=== PATIENT | male | born 1965 | race Caucasian/White ===

== ENCOUNTER → 2022-04-02 11:08 | Outpatient (CLI) | payer BC, SELFPAY ==
--- NOTE | 2022-04-02 11:10 | DI.US.S_ITS ---
PROCEDURE: US SCROTUM INDICATIONS: Scrotal mass TECHNIQUE: Real-time scanning was performed of the scrotum and testicles, with image documentation. Color and pulse Doppler interrogation was performed of both testicles. COMPARISON: None. FINDINGS: Right: Testicle is normal in size at 4.6 x 2.2 x 2.9 cm, and homogenous in echotexture. Epididymis is normal in overall size and morphology. Small hydrocele. No varicoceles. Overlying scrotal skin is normal in thickness. Left: Testicle is normal in size at 3.8 x 1.9 x 2.7 cm, and homogeneous in echotexture. Epididymis is normal in overall size and morphology. Small hydrocele. No varicoceles. Overlying scrotal skin is normal in thickness. 3 mm left scrotal pleural. Doppler: Color and pulse Doppler demonstrate normal and symmetric arterial flow in both testicles. IMPRESSION: 1. Normal appearance of the testicles bilaterally. 2. Small bilateral hydroceles. 3. 3 mm left scrotal dariel. Dictated by: Yobany GREGORIO Interpreted: Melissa Chandler MD on 04/02/2022 at 12:05 Approved by: Melissa Chandler M.D. on 04/02/2022 at 13:03
== END ==
PROVIDERS: PCP Internal Medicine; Referring Provider Specialist; Visit Provider Specialist
DX: N43.40 Spermatocele of epididymis, unspecified (principal); N43.3 Hydrocele, unspecified
CPT/HCPCS: 76870

== ENCOUNTER → 2022-04-08 08:26 | Outpatient (CLI) | payer BC, SELFPAY ==
[2022-04-08 10:03] LABS: Prostate Specific Antigen 2.44 ng/mL (0.10-4.00)
== END ==
PROVIDERS: PCP Internal Medicine; Referring Provider Specialist; Visit Provider Specialist
DX: R97.20 Elevated prostate specific antigen [PSA] (principal)
CPT/HCPCS: 36415; 84153

== ENCOUNTER → 2022-07-17 09:18 | Outpatient (CLI) | payer BC, SELFPAY ==
[2022-07-17 10:27] LABS: COVID19 -Nasal RAPID Negative (Negative)
== END ==
PROVIDERS: PCP Internal Medicine; Visit Provider Surgery
DX: Z20.822 Contact with and (suspected) exposure to COVID-19 (principal); Z01.812 Encounter for preprocedural laboratory examination
CPT/HCPCS: 87635; C9803

== ENCOUNTER 2022-07-20 07:31 | Day surgery (SDC) | payer BC, SELFPAY ==
--- NOTE | 2022-07-20 | PATH_ITS ---
[facility] Accession Number: [id number] . 01 Material submitted: . PART A: gastrointestinal site - ANTRUM BIOPSY PART B: gastrointestinal site - GASTRIC POLYP PART C: gastrointestinal site - CARDIA BIOPSY PART D: colon - ASCENDING COLON POLYP . 01 Clinical history: . DX COLONOSCOPY/EGD W/POSS BX . 01 Diagnosis: A. Antrum, Biopsy: Gastric antral and body mucosa with minimal chronic inflammation. Negative for Helicobacter organisms by immunohistochemistry. Negative for intestinal metaplasia. Negative for dysplasia or malignancy. . B. Gastric Polyp, Biopsy: Fundic gland polyp. No evidence of Helicobacter organisms on H/E stain. Negative for intestinal metaplasia. Negative for dysplasia and malignancy. . C. Cardia, Biopsy: Proximal gastric-type mucosa with moderate chronic inflammation. Negative for Helicobacter organisms by immunohistochemistry. Negative for intestinal metaplasia on alcian blue stain. Negative for dysplasia or malignancy. . D. Ascending Colon Polyp, Biopsy: Tubular adenoma. [facility] 07/22/2022 1347 Local . 01 Electronically signed: . Kwesi House MD, PhD, Pathologist NPI- [id number] . 01 Gross description: . Part A: ANTRUM BIOPSY: Received in formalin are 2 fragment(s) of montgomery, soft tissue measuring 0.1 x 0.1 x 0.1 cm to 0.2 x 0.2 x 0.2 cm submitted entirely in 1 cassette(s) Part B: GASTRIC POLYP: Received in formalin is 1 fragment(s) of montgomery, soft tissue measuring 0.3 x 0.3 x 0.3 cm submitted entirely in 1 cassette(s) Part C: CARDIA BIOPSY: Received in formalin are 2 fragment(s) of montgomery, soft tissue measuring 0.1 x 0.1 x 0.1 cm to 0.3 x 0.3 x 0.2 cm submitted entirely in 1 cassette(s) Part D: ASCENDING COLON POLYP: Received in formalin is 1 fragment(s) of montgomery, soft tissue measuring 0.6 x 0.6 x 0.6 cm submitted entirely in 1 cassette(s) /[facility] 07/20/2022 2310 Local . 01 Microscopic: . A. An immunohistochemical stain was performed to evaluate for Helicobacter organisms and is negative. The control stain showed appropriate reactivity. . C. An alcian blue stain is negative for goblet cells. An immunohistochemical stain is negative for Helicobacter organisms. Control stains show appropriate reactivity. . * This test was developed and its performance characteristics determined by [facility]. It has not been cleared or approved by the U.S. Food and Drug Administration. The FDA has determined that such clearance or approval is not necessary. This test is used for clinical purposes. It should not be regarded as investigational or for research. . 01 Pathologist provided ICD-10: K29.70, K31.7, D12.2 . 01 CPT . 919157, 616310, 708133, 901581, K57692, 291934 Specimen Comment: A courtesy copy of this report has been sent to [phone] Performed at: [facility] [address] [place] [address] [address] [facility], [place], [place] [id number] MD Estuardo Monzon MD Phone: [phone]
[2022-07-20 07:48] VITALS: BP 159/98; PULSE 62; RESP 16; TEMP 36.4; O2SAT 100; BMI 22.4
--- NOTE | 2022-07-20 08:04 | PM.HP.1 ---
History of Present Illness History of Present Illness Date Patient Seen: 07/20/22 Time Patient Seen: 08:05 Chief complaint: DX COLONOSCOPY/EGD W/POSS BX Narrative: Chronic GERD. Personal history of adenomatous colon polyps. Patient History Medical History BPH (benign prostatic hyperplasia) BPH w/o urinary obs/LUTS Family history of prostate cancer in father Nocturia Surgical History History of circumcision History of prostate biopsy Family & Social History Family History Father Melanoma Prostate cancer Stroke Daughter Diabetes mellitus Tobacco & Substance use: Smoking Status Never smoker alcohol intake current Meds Home Medications and Allergies Home Medications Medication Instructions Recorded Confirmed Type ascorbic acid (vitamin C) 1,000 mg 1 g PO Q6H 02/25/21 07/20/22 History tablet multivitamin (Daily Multi-Vitamin 1 tab PO DAILY 02/25/21 07/20/22 History tablet) zolpidem 10 mg tablet 10 mg PO BEDTIME PRN sleep 02/25/21 07/20/22 History omeprazole 20 mg capsule,delayed 10 mg PO DAILY 07/20/22 07/20/22 History release Allergies Allergy/AdvReac Type Severity Reaction Status Date / Time No Known Drug Allergies Allergy Verified 07/20/22 07:33 Review of Systems Review of Systems ROS: Yes All systems reviewed with the patient and are negative except as otherwise documented Exam Const General: cooperative HENMT Head: normal to inspection Eyes General: appearance normal, both eyes and all related structures Neck Neck: normal visual inspection Chest Chest: normal inspection of the chest Resp Effort & Inspection: normal respiratory effort Cardio Rate: regular rate GI Inspection: normal to inspection Skin General: no rashes or lesions noted Neuro General: patient alert and patient awake Extrem General: normal to inspection and no pedal edema Psych Appearance: grossly normal Assessment & Plan Assessment & Plan narrative: 56-year-old male longstanding reflux. Barretts screening is pursued today. He also has a personal history of colon polyps. Colonoscopy is also pursued today. Time Spent With Patient Critical Care time: I spent a total of [] minutes of critical care time on this patient's care today; this time is exclusive of procedural time.
--- NOTE | 2022-07-20 08:06 | PM.PREOP ---
Pre-operative Note COVID-19 COVID-19 status: Negative Result date/Date tested (Pos, Neg/Pending): 07/17/22 Criteria for continued procedure: Possibility delay results in more complex future surgery or treatment Interval Note History & Physical reviewed/Exam performed by Physician: Yes Changes to H&P: No ASA Class (for procedural sedation): II
[2022-07-20] MEDS: SODIUM CHLORIDE 0.9% 1,000 ML 84 ML IV (08:11)
--- NOTE | 2022-07-20 09:12 | PM.OP.EC ---
Operative Date/Time/Diagnoses Date of procedure: 07/20/22 Time of procedure: 09:13 Pre-op diagnosis: Chronic GERD, personal history of colon polyps Post-op diagnosis: same Procedure & Clinicians Study performed: EGD with biopsies and colonoscopy with hot snare polypectomy Same procedure as scheduled: Yes Indications: Chronic GERD and personal history of colon polyps Surgeon: Edison Powell Procedure Notes SCOAP/Timeout: Done Procedure in detail: After the risks and benefits were explained, written and verbal informed consent was obtained. The patient was brought into the procedure room and placed into the left lateral decubitus position. Please see nurse rehabilitation specialist notes for sedation details. The scope was introduced into the mouth through the bite block and advanced under direct visualization to the 2nd portion of the duodenum. The scope was slowly withdrawn carefully examining the mucosa for any defects or lesions. Retroflexed views were accomplished in the stomach. The stomach was decompressed, the scope was then removed from the patient who tolerated the procedure well. Scope withdrawal time: 6 minutes Sedation minutes: 24 Complications: none Impression: 1. Duodenum: No significant pathology was appreciated from the bulb through the 2nd portion. 2. Stomach: Mild gastropathy was appreciated throughout and biopsies were therefore taken from the antrum for exclusion of H pylori. There was a diminutive gastric polyp from the body removed with cold forceps. Retroflexed views of the LES disclosed sliding hiatal hernia. The gastric cardia appeared slightly irregular and therefore targeted biopsies were acquired. 3. Esophagus: The squamocolumnar junction correlated with the top of the gastric folds. GEJ was at roughly 39-40 cm. The diaphragmatic pinchcock was at about 42 cm. (2-3 cm sliding hiatal hernia). I did not appreciate any evidence of active esophagitis nor any endoscopic suggestion of Barretts. 4. Colon: In the ascending colon there was an approximately 6-7 mm sessile polyp removed with hot snare. The patient had grade 1 internal hemorrhoids. Otherwise no additional pathology was appreciated throughout. Endoscopic diagnosis 1. Gastropathy 2. Gastric polyp 3. Sliding hiatal hernia 4. Colon polyp Post-procedure Plan for aftercare: 1. Await histopathology 2. Repeat colonoscopy will likely be suggested for 5 years' time. (the last procedure demonstrated a 1 cm adenomatous polyp) Disposition: PACU
[2022-07-20 09:15] VITALS: BP 140/90; PULSE 55; RESP 13; TEMP 36; O2SAT 100
[2022-07-20 09:20] VITALS: BP 153/102; PULSE 57; RESP 16; O2SAT 100
[2022-07-20 09:25] VITALS: BP 148/103; PULSE 56; RESP 20; O2SAT 100
[2022-07-20 09:30] VITALS: BP 161/103; PULSE 60; RESP 16; O2SAT 100
[2022-07-20 09:45] VITALS: BP 170/88; PULSE 56; RESP 16; TEMP 36.1; O2SAT 100
== END 2022-07-20 09:48 | disposition home or self-care (01) ==
PROVIDERS: PCP Internal Medicine; Referring Provider Internal Medicine Gastroenterology; Visit Provider Internal Medicine Gastroenterology
PROC: 0DJ08ZZ Inspection of Upper Intestinal Tract, Via Natural or Artificial Opening Endoscopic (ICD-10-PCS; CPT 43235; principal; 2022-07-20 08:30)
PROC: 0DJD8ZZ Inspection of Lower Intestinal Tract, Via Natural or Artificial Opening Endoscopic (ICD-10-PCS; CPT 45378; 2022-07-20 08:30)
DX: D12.2 Benign neoplasm of ascending colon (principal); K64.0 First degree hemorrhoids; K31.7 Polyp of stomach and duodenum; K29.50 Unspecified chronic gastritis without bleeding; K44.9 Diaphragmatic hernia without obstruction or gangrene; K21.9 Gastro-esophageal reflux disease without esophagitis; Z86.010 Personal history of colon polyps
CPT/HCPCS: 45385; 43239; J2704; J3010

== ENCOUNTER → 2023-02-12 09:54 | Outpatient (CLI) | payer OTHER, SELFPAY ==
[2023-02-12 12:27] LABS: Prostate Specific Antigen 2.38 ng/mL (0.10-4.00)
== END ==
PROVIDERS: PCP Internal Medicine; Referring Provider Specialist; Visit Provider Specialist
DX: N40.0 Benign prostatic hyperplasia without lower urinary tract symptoms (principal)
CPT/HCPCS: 36415; 84153

== ENCOUNTER → 2023-03-12 13:46 | Outpatient (CLI) | payer OTHER, SELFPAY ==
--- NOTE | 2023-03-12 13:47 | DI.CT.S_ITS ---
PROCEDURE: CT IVP A/P W/WO INDICATIONS: hematuria TECHNIQUE: Optional 5 mm thick noncontrast images acquired from the diaphragm to the symphysis pubis. After the administration of intravenous contrast, 5 mm thick images acquired from the diaphragm to the symphysis pubis after a 10-minute delay. 2 mm thick coronal and sagittal reformats were then performed of the kidneys and ureters. For radiation dose reduction, the following was used: automated exposure control, adjustment of mA and/or kV according to patient size. COMPARISON: US, US SCROTUM, 04/02/2022, 11:29. FINDINGS: Image quality: Excellent. Lung bases: Lung bases are clear. Heart size is normal. Moderate hiatal hernia. Urinary system: Both kidneys are normal in size, without hydronephrosis or nephrolithiasis on pre-contrast images. No perinephric fat stranding. Benign right renal cyst measuring 3.2 cm. A few additional small cysts. There is normal bilateral renal enhancement. Renal calyces appear normal in morphology when filled with contrast. Opacified portions of both ureters demonstrate normal caliber. No filling defect within the opacified portions of the ureters. Bladder wall thickness is normal. No calcified bladder stones. Other solid organs: Liver is normal in size and enhancement. Large benign cyst in the liver measuring 8.2 cm. Gallbladder is unremarkable. Biliary system is non dilated. Pancreas enhances normally. Spleen is normal in size and enhancement. No adrenal nodules. Peritoneum and bowel: Bowel loops demonstrate normal wall thickness and caliber. Normal appendix. No free fluid or air. Nodes and vessels: No retroperitoneal or mesenteric adenopathy by size criteria. Aorta and inferior vena cava are normal in size. Abdominal wall: No ventral hernias. Pelvis: Prostatomegaly. No pathologic free pelvic fluid. Probable fat containing inguinal hernias. No adenopathy. Bones: No suspicious bony lesions. No vertebral body compression fractures. IMPRESSION: 1. No kidney stones. No hydronephrosis. 2. No solid renal mass. 3. No upper urinary tract filling defect. 4. Moderate-sized hiatal hernia. 5. Prostatomegaly. Dictated by: Raji Virk M.D. on 03/12/2023 at 15:57 Approved by: Raji Virk M.D. on 03/12/2023 at 16:09
== END ==
PROVIDERS: PCP Internal Medicine; Referring Provider Specialist; Visit Provider Specialist
DX: R31.9 Hematuria, unspecified (principal); K44.9 Diaphragmatic hernia without obstruction or gangrene; N40.0 Benign prostatic hyperplasia without lower urinary tract symptoms; K76.89 Other specified diseases of liver
CPT/HCPCS: 74178; Q9967

== ENCOUNTER 2023-07-15 20:26 | Emergency (ER) | payer OTHER, SELFPAY ==
[2023-07-15 20:30] VITALS: BP 91/60; PULSE 68; RESP 18; TEMP 36.6; O2SAT 100; BMI 22.4
--- NOTE | 2023-07-15 20:36 | DI.RAD.S_ITS ---
PROCEDURE: XR ANKLE RT MIN 3V INDICATIONS: fall/pain/can't walk TECHNIQUE: 3 views of the ankle were acquired. COMPARISON: None. FINDINGS: Bones: There is a comminuted, displaced distal right fibular metadiaphyseal fracture. No other fracture or dislocation. No fibulotalar widening. Soft tissues: No tibiotalar joint effusion. Achilles tendon appears normal. IMPRESSION: Displaced, comminuted distal right fibular fracture. Dictated by: Sara Scott M.D. on 07/15/2023 at 21:28 Approved by: Sara Scott M.D. on 07/15/2023 at 21:29
--- NOTE | 2023-07-15 20:36 | DI.RAD.S_ITS ---
PROCEDURE: XR CHEST 1V INDICATIONS: chest pain TECHNIQUE: One view of the chest was acquired. COMPARISON: None. FINDINGS: Surgical changes and devices: None. Lungs and pleura: Patchy airspace opacities are present within the left mid lung. No pleural effusion or pneumothorax. Mediastinum: Mediastinal contours appear normal. Heart size is normal. Bones and chest wall: No suspicious bony lesions. Overlying soft tissues appear unremarkable. IMPRESSION: Patchy left mid lung airspace opacities suspicious for aspiration/infection. Short interval follow-up recommended to exclude underlying neoplasm. Dictated by: Sara Scott M.D. on 07/15/2023 at 21:27 Approved by: Sara Scott M.D. on 07/15/2023 at 21:28
[2023-07-15 20:43] VITALS: PULSE 71; RESP 22
[2023-07-15 21:00] VITALS: BP 93/62; PULSE 75; RESP 22
--- NOTE | 2023-07-15 21:01 | ED.GENADULT ---
HPI - General Adult General Chief complaint: Syncope Stated complaint: Injured Right ankle in fall Time Seen by Provider: 07/15/23 20:43 Source: patient Mode of arrival: Wheelchair Limitations: no limitations History of Present Illness HPI narrative: Patient is a 57-year-old male who is here for evaluation of a syncopal episode resulting in a right ankle injury. He states he was at home. It is normal state of health. [place] somewhat lightheaded. Had no chest pain, palpitations, shortness of breath, headache or nausea or vomiting. He states he stood up to go outside. As he was standing outside he had a syncopal episode. He is unsure exactly how he fell but during the fall he did injure his right ankle and has been unable to walk on his right ankle since that time. No history of seizures. This did not appear to be a seizure. He did start a new blood pressure medicines about 3 weeks ago that he takes 1 time a day. The time of my evaluation other than his right ankle pain has no other associated symptoms. Related Data Home Medications Medication Instructions Recorded Confirmed ascorbic acid (vitamin C) 1,000 mg 1 g PO Q6H 02/25/21 03/16/23 tablet multivitamin (Daily Multi-Vitamin 1 tab PO DAILY 02/25/21 03/16/23 tablet) omeprazole 20 mg capsule,delayed 10 mg PO DAILY 07/20/22 03/16/23 release zolpidem 10 mg tablet 5 mg PO BEDTIME PRN sleep 09/03/22 03/16/23 Previous Rx's Medication Instructions Recorded hydrocodone 5 mg-acetaminophen 325 1 tab PO Q4-6H PRN pain #20 tabs 07/15/23 mg tablet Allergies Allergy/AdvReac Type Severity Reaction Status Date / Time No Known Drug Allergies Allergy Verified 03/16/23 09:02 Review of Systems Constitutional Constitutional: Reports system reviewed and no additional complaints, except as documented Cardiovascular Cardiovascular: Reports system reviewed and no additional complaints, except as documented Respiratory Respiratory: Reports system reviewed and no additional complaints, except as documented Gastrointestinal Gastrointestinal: Reports system reviewed and no additional complaints, except as documented Musculoskeletal Musculoskeletal: Reports system reviewed and no additional complaints, except as documented Integumentary/Breasts Skin/Breast: Reports system reviewed and no additional complaints, except as documented Neurologic Neurologic: Reports system reviewed and no additional complaints, except as documented Hematologic/Lymphatic On Anticoagulants: No Patient History Medical History BPH (benign prostatic hyperplasia) BPH w/o urinary obs/LUTS Family history of prostate cancer in father Hematuria History of elevated PSA Nocturia Surgical History History of circumcision History of prostate biopsy Family History Father Melanoma Prostate cancer Stroke Daughter Diabetes mellitus Social History marital status: number of children: 2 household members: spouse occupational status: employed Smoking Status: Never smoker alcohol intake: current caffeine: Yes Smoking Status: Never smoker alcohol intake frequency: 0-2 drinks per day Substance Use Type: marijuana Exam Initial Vital Signs Initial Vital Signs: Vital Signs Temperature 97.8 F 07/15/23 20:30 Pulse Rate 68 07/15/23 20:30 Respiratory Rate 18 07/15/23 20:30 Blood Pressure 91/60 07/15/23 20:30 Pulse Oximetry 100 07/15/23 20:30 Oxygen Delivery Method Room Air 07/15/23 20:30 Const General: cooperative and comfortable HENMT Head: normal to inspection and normocephalic Resp Effort & Inspection: normal respiratory effort Auscultation: clear to auscultation bilaterally Cardio Rate: regular rate Rhythm: regular rhythm Pulses: dorsalis pedis present on the right Skin General: no rashes or lesions noted Neuro Sensory Exam: no sensory deficits noted Extrem Other: Deformity to right ankle Procedures Orthopedic Splinting/Casting Injury #1: Side: right Lower Extremity Injury Location: ankle Lower Extremity Immobilizer: posterior splint and stirrup splint Other Orthopedic Equipment: crutches Post splinting neuro exam: intact Post splinting vascular exam: intact Placed by: Provider Course Orders Ordered: ED Orders 07/15/23 20:36 XR ankle RT min 3V Stat XR chest 1V Stat EKG-12 Lead Stat 07/15/23 20:50 Complete Blood Count AUTO DIFF Stat Comprehensive Metabolic Panel Stat Lipase Stat Magnesium Stat PTT Partial Thromboplastin Kiko Stat Prothrombin Time INR Stat Troponin & CK Cardiac Panel Stat Discontinued Medications Hydrocodone Bitart/Acetaminophen (Hydrocodone/Acet 5/325 Tablet) 1 tab PO NOW ONE Stop: 07/15/23 21:54 Last Admin: 07/15/23 22:01 Dose: 1 tab Documented By: FERMIN Hydrocodone Bitart/Acetaminophen (Hydrocodone/Acet 5/325 Prepack) 1 bottle MISC SEEINSTR ONE Stop: 07/15/23 21:54 Last Admin: 07/15/23 22:01 Dose: 1 bottle Documented By: FERMIN Vital Signs Vital signs: Vital Signs - 8 hr 07/15/23 20:30 07/15/23 20:43 07/15/23 21:00 Temperature 97.8 F Pulse Rate 68 71 Respiratory Rate 18 22 Blood Pressure 91/60 93/62 Pulse Oximetry 100 Oxygen Delivery Method Room Air 07/15/23 21:00 07/15/23 21:30 07/15/23 21:30 Temperature Pulse Rate 75 83 Respiratory Rate 22 27 H Blood Pressure 100/65 Pulse Oximetry Oxygen Delivery Method 07/15/23 22:00 07/15/23 22:00 Temperature Pulse Rate 82 Respiratory Rate 18 Blood Pressure 104/63 Pulse Oximetry Oxygen Delivery Method Medical Decision Making Lab Data Lab results reviewed: Yes I reviewed the patient's lab results. 07/15/23 20:50 07/15/23 20:50 Labs: Lab Results 07/15/23 07/15/23 07/15/23 Range/Units 20:50 20:50 20:50 WBC 9.4 (4.5-11.0) X10^3/uL RBC 4.92 (4.5-5.9) X10^6/uL Hgb 15.4 (13.5-17.5) g/dL Hct 44.7 (41-53) % MCV 90.9 (80-100) fL MCH 31.3 (26-34) PG MCHC 34.4 (30-36) % RDW 13.0 (11.6-14.8) % Plt Count 237 (150-400) X10^3/uL Neut % (Auto) 63.5 (50-75) % Lymph % (Auto) 29.0 (25-40) % Moffat % (Auto) 6.5 (3-14) % Eos % (Auto) 0.7 L (2-4) % Baso % (Auto) 0.3 (0-2) % Neut # (Auto) 6000 (3450-0666) /uL Lymph # (Auto) 2700 (3419-0786) /uL Moffat # (Auto) 600 (0-900) /uL Eos # (Auto) 100 (0-450) /uL Baso # (Auto) 0 (0-100) /uL PT 13.1 H (10.1-12.7) SECONDS INR 1.1 (0.9-1.3) APTT 26 (26-36) SECONDS Sodium 140 (137-145) mmol/L Potassium 3.7 (3.4-5.1) mmol/L Chloride 103 (98-107) mmol/L Carbon Dioxide 21 L (22-32) mmol/L BUN 15 (9-20) mg/dL Creatinine 1.02 (0.66-1.25) mg/dL Estimated GFR > 60 (>60) mL/min BUN/Creatinine Ratio 14.7 (6-22) Glucose 100 (70-100) mg/dL Calcium 8.8 (8.4-10.2) mg/dL Magnesium 2.1 (1.6-2.3) mg/dL Total Bilirubin 0.5 (0.2-1.3) mg/dL AST 48 (17-59) IU/L ALT 28 (<50) IU/L Alkaline Phosphatase 50 (38-126) U/L Total Creatine Kinase 68 (55-170) U/L Troponin I < 0.012 (0.01-0.034) ng/mL Total Protein 7.4 (6.3-8.2) g/dL Albumin 4.4 (3.5-5.0) g/dL Globulin 3.0 (1.7-4.1) g/dL Albumin/Globulin Ratio 1.5 (1.0-2.8) Lipase 125 (23-300) U/L Imaging Data Extremity x-ray #1: Radiologist's Impression: PROCEDURE:? XR ANKLE RT MIN 3V ? INDICATIONS:? fall/pain/can't walk ? TECHNIQUE:? 3 views of the ankle were acquired.? ? COMPARISON:? None. ? FINDINGS:? ? Bones:? There is a comminuted, displaced distal right fibular metadiaphyseal fracture.? No other fracture or dislocation.? No fibulotalar widening. ? Soft tissues:? No tibiotalar joint effusion.? Achilles tendon appears normal.? ? ? IMPRESSION:? Displaced, comminuted distal right fibular fracture. Chest x-ray: Radiologist's Impression: PROCEDURE:? XR CHEST 1V ? INDICATIONS:? chest pain ? TECHNIQUE:? One view of the chest was acquired.? ? COMPARISON:? None. ? FINDINGS:? ? Surgical changes and devices:? None.? ? Lungs and pleura:? Patchy airspace opacities are present within the left mid lung.? No pleural effusion or pneumothorax. ? Mediastinum:? Mediastinal contours appear normal.? Heart size is normal.? ? Bones and chest wall:? No suspicious bony lesions.? Overlying soft tissues appear unremarkable.? ? IMPRESSION:? Patchy left mid lung airspace opacities suspicious for aspiration/infection. ?Short interval follow-up recommended to exclude underlying neoplasm. ECG Data Attestation: I personally reviewed and interpreted this ECG as follows: Interpretation: Sinus rhythm Ventricular rate is 71 Normal axis Normal QRS Normal QTC No ST T wave changes MDM Narrative Medical decision making narrative: He does have a fibula fracture his right ankle with slight mild displacement of the tibiotalar joint which is suspicious for a syndesmotic injury. Does not appear to be any tibia fracture. Because of the possible syndesmotic injury will place the patient in an ankle splint and make him nonweightbearing. He was advised that he does need to follow-up orthopedic surgery. No other injuries with the event. Unsure the exact cause of his syncopal episode. The rest of his workup here in the emergency department is unremarkable. I did discuss the possibility of a transient arrhythmia. Will discharge patient home with instructions to contact his primary doctor for follow-up. He expressed understanding and agreement. Discharge Plan Departure Patient Disposition: Home Clinical Impression: Syncope, Fibula fracture Instructions: How to Use Crutches, DI for Syncope in Adults (Fainting), How to Take Care of Your Splint, Fibula Shaft Fracture Activity Restrictions/Additional Instructions: The splint that was placed today does need to stay on and stay clean and stay dry. Please use the crutches. Use the pain medication as needed. Contact the orthopedic group at the number provided below for follow-up. Return to the emergency department for new symptoms. Prescriptions: New hydrocodone-acetaminophen 5-325 mg tablet 1 tab PO Q4-6H PRN (Reason: pain) Qty: 20 0RF No Action omeprazole 20 mg Capsule,Delayed Release(Dr/Ec) 10 mg PO DAILY ascorbic acid (vitamin C) 1,000 mg tablet 1 g PO Q6H multivitamin [Daily Multi-Vitamin] Tablet 1 tab PO DAILY zolpidem 10 mg tablet 5 mg PO BEDTIME PRN (Reason: sleep) Referrals: Kelly Zuniga MD [Physician] - Rosalie Wilson MD [Primary Care Provider] - Stand Alone Forms: Patient Portal/API
[2023-07-15 21:03] LABS: Add Manual Diff / Slide Review NO; Basophils Absolute Auto 0 /uL (0-100); Basophils Percent Auto 0.3 % (0-2); Eosinophils Absolute Auto 100 /uL (0-450); Eosinophils Percent Auto 0.7 % (2-4); Hematocrit 44.7 % (41-53); Hemoglobin 15.4 g/dL (13.5-17.5); Lymphocytes Absolute Auto 2700 /uL (1100-4500); Mean Corpuscular HGB Conc 34.4 % (30-36); Mean Corpuscular Hemoglobin 31.3 PG (26-34); Mean Corpuscular Volume 90.9 fL (80-100); Monocytes Absolute Auto 600 /uL (0-900); Monocytes Percent Auto 6.5 % (3-14); Neutrophils Absolute Auto 6000 /uL (1500-7000); Neutrophils Percent Auto 63.5 % (50-75); Platelet Count 237 X10^3/uL (150-400); Red Blood Cell Count 4.92 X10^6/uL (4.5-5.9); White Blood Cell Count 9.4 X10^3/uL (4.5-11.0)
[2023-07-15 21:12] LABS: INR 1.1 (0.9-1.3); Prothrombin Time 13.1 SECONDS (10.1-12.7)
[2023-07-15 21:14] LABS: Alanine Aminotransferase 28 IU/L (<50); Albumin 4.4 g/dL (3.5-5.0); Albumin Globulin Ratio 1.5 (1.0-2.8); Alkaline Phosphatase 50 U/L (38-126); Aspartate Aminotransferase 48 IU/L (17-59); BUN Creatinine Ratio 14.7 (6-22); Bilirubin Total 0.5 mg/dL (0.2-1.3); Blood Urea Nitrogen 15 mg/dL (9-20); Calcium 8.8 mg/dL (8.4-10.2); Carbon Dioxide 21 mmol/L (22-32); Chloride 103 mmol/L (98-107); Creatine Kinase 68 U/L (55-170); Estimated Glomerular Filt Rate > 60 mL/min (>60); Glucose 100 mg/dL (70-100); HEMOLYSIS 40 (0-50); Lipase 125 U/L (23-300); Magnesium 2.1 mg/dL (1.6-2.3); PTT Partial Thromboplastin Tim 26 SECONDS (26-36); Potassium 3.7 mmol/L (3.4-5.1); Sodium 140 mmol/L (137-145); Total Protein 7.4 g/dL (6.3-8.2)
[2023-07-15 21:26] LABS: Troponin I < 0.012 ng/mL (0.01-0.034)
[2023-07-15 21:30] VITALS: BP 100/65; PULSE 83; RESP 27
[2023-07-15 22:00] VITALS: BP 104/63; PULSE 82; RESP 18
[2023-07-15] MEDS: HYDROCODONE/ACET 5/325 PREPACK 1 BOTTLE MISC (22:01)
[2023-07-15] MEDS: HYDROCODONE/ACET 5/325 TABLET 1 TAB PO (22:01)
== END 2023-07-15 22:37 | disposition home or self-care (01) ==
PROVIDERS: Emergency Provider Emergency Medicine; PCP Internal Medicine
DX: R55 Syncope and collapse (principal); S82.401A Unspecified fracture of shaft of right fibula, initial encounter for closed fracture; R07.9 Chest pain, unspecified
CPT/HCPCS: 36415; 71045; 73610; 80053; 82550; 83690; 83735; 84484; 85025; 85610; 85730; 93005; 99284

== ENCOUNTER → 2023-07-19 10:47 | Outpatient (CLI) | payer OTHER, SELFPAY ==
[2023-07-19 12:28] LABS: Hemoglobin A1C% w Est Avg Glu 4.8 % (4.0-6.0)
[2023-07-19 12:45] LABS: BUN Creatinine Ratio 17.1 (6-22); Blood Urea Nitrogen 13 mg/dL (9-20); Calcium 8.9 mg/dL (8.4-10.2); Carbon Dioxide 26 mmol/L (22-32); Chloride 103 mmol/L (98-107); Estimated Glomerular Filt Rate > 60 mL/min (>60); Glucose 80 mg/dL (70-100); HEMOLYSIS < 15 (0-50); Potassium 4.3 mmol/L (3.4-5.1); Sodium 137 mmol/L (137-145)
== END ==
PROVIDERS: PCP Internal Medicine; Referring Provider Orthopaedic Surgery Foot and Ankle Surgery; Visit Provider Orthopaedic Surgery Foot and Ankle Surgery
DX: R73.9 Hyperglycemia, unspecified (principal); Z01.812 Encounter for preprocedural laboratory examination; N39.0 Urinary tract infection, site not specified
CPT/HCPCS: 36415; 80048; 83036

== ENCOUNTER → 2023-12-17 14:07 | Outpatient (CLI) | payer OTHER, SELFPAY ==
[2023-12-17 15:48] LABS: Prostate Specific Antigen 2.64 ng/mL (0.10-4.00)
== END ==
PROVIDERS: PCP Internal Medicine; Referring Provider Specialist; Visit Provider Specialist
DX: Z87.898 Personal history of other specified conditions (principal)
CPT/HCPCS: 36415; 84153

== ENCOUNTER → 2024-06-20 13:39 | Outpatient (CLI) | payer OTHER, SELFPAY | PROVIDERS: PCP Internal Medicine; Referring Provider Specialist; Visit Provider Specialist | DX: Z87.898 Personal history of other specified conditions (principal); N40.0 Benign prostatic hyperplasia without lower urinary tract symptoms | CPT/HCPCS: 36415; 84153 ==

== ENCOUNTER → 2024-10-16 13:13 | Outpatient (CLI) | payer OTHER, SELFPAY ==
--- NOTE | 2024-10-16 13:15 | DI.MRI.S_ITS ---
PROCEDURE: MR SHOULDER LT WO CON INDICATIONS: pain in left shoulder TECHNIQUE: Noncontrast oblique coronal T2 fast spin echo with fat saturation, oblique sagittal T1 spin echo and T2 fast spin echo with fat saturation, axial T1 spin echo and T2 fast spin echo with fat saturation through the shoulder. COMPARISON: None. FINDINGS: Image quality: Excellent. Rotator cuff: The subscapularis tendon is intact. The supraspinatus tendon demonstrates increased signal at its footplate suggesting a partial tear. No retraction. The infraspinatus tendon is intact. Bones and bursae: There is bony impingement on the rotator cuff. There is severe degenerative joint disease involving the glenohumeral joint with joint space narrowing. Numerous large adjacent bone densities measuring up to 2 centimeters seen inferior to the joint most likely synovial osteochondromas. There are areas of osteonecrosis and subchondral cysts formation involving the glenoid subarticular surface. The humeral subarticular surface is markedly irregular. Capsule and soft tissues: There is a small amount of fluid in the subacromial bursa. Labrum is torn. The long head of the biceps tendon demonstrates normal location and morphology. AC joint is intact. 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 There is marked irregularity involving the glenohumeral articular surface with loss of articular cartilage and a torn labrum. There is a partial tear involving the supraspinatus tendon at its insertion. There is subacromial bursitis. Dictated by: Juanpablo Antoine M.D. on 10/16/2024 at 14:12 Approved by: Juanpablo Antoine M.D. on 10/16/2024 at 14:27
== END ==
PROVIDERS: PCP Internal Medicine; Referring Provider Orthopaedic Surgery; Visit Provider Orthopaedic Surgery
DX: D21.12 Benign neoplasm of connective and other soft tissue of left upper limb, including shoulder (principal); M75.112 Incomplete rotator cuff tear or rupture of left shoulder, not specified as traumatic; M25.512 Pain in left shoulder; M75.52 Bursitis of left shoulder
CPT/HCPCS: 73221

== ENCOUNTER → 2025-06-26 15:02 | Outpatient (CLI) | payer OTHER, SELFPAY ==
[2025-06-26 16:53] LABS: Prostate Specific Antigen 2.66 ng/mL (0.10-4.00)
== END ==
PROVIDERS: PCP Internal Medicine; Referring Provider Internal Medicine; Visit Provider Urology
DX: Z87.898 Personal history of other specified conditions (principal); Z80.42 Family history of malignant neoplasm of prostate
CPT/HCPCS: 36415; 84153

== ENCOUNTER → 2025-10-11 14:41 | Outpatient (CLI) | payer OTHER, SELFPAY ==
--- NOTE | 2025-10-11 14:41 | DI.US.S_ITS ---
PROCEDURE: US HERNIA INDICATIONS: BULGE IN LEFT GROIN ?HERNIA TECHNIQUE: Real-time focused scanning was performed of the abdomen, with image documentation. COMPARISON: None. FINDINGS AND IMPRESSION: Left groin fat containing hernia is reducible, neck measuring about 1.2 cm. Dictated by: Power Davis M.D. on 10/11/2025 at 16:02 Approved by: Power Davis M.D. on 10/11/2025 at 16:02
== END ==
PROVIDERS: PCP Internal Medicine; Referring Provider Internal Medicine; Visit Provider Family Medicine
DX: K40.90 Unilateral inguinal hernia, without obstruction or gangrene, not specified as recurrent (principal)
CPT/HCPCS: 76705